=== PATIENT | female | born 1950 | race Caucasian/White ===

== ENCOUNTER 2020-11-17 08:00 | Emergency (ER) | payer OTHER, SELFPAY ==
--- NOTE | ~2020-11-17 | XR_ITS ---
EXAMINATION: XR shoulder RT min 2V, XR humerus RT, XR elbow RT min 3V EXAM DATE: 11/17/2020 08:50 INDICATION: Fall, injury. TECHNIQUE: Right shoulder frontal, oblique, Y projections. Right humerus frontal and oblique projecti ons. Right elbow frontal, oblique, lateral with flexion projections. There are no prior studies for c omparison. FINDINGS: There is acute closed posttraumatic fracture through the shaft of the right humerus with mi ld displacement and mild angulation. There is a fracture line identified extending cephalad along the long access of the bone toward the humeral head. This may also involve the greater tuberosity. No sh oulder dislocation. The right elbow is unremarkable. IMPRESSION: Acute right humeral shaft fracture with mild angulation and displacement. Nondisplaced c omponent of fracture extending into humeral neck and probably greater tuberosity. Reviewed, dictated and finalized at location [facility] [employer] IMPRESSION: Acute right humeral shaft fracture with mild angulation and displac ement. Nondisplaced component of fracture extending into humeral neck and prob ably greater tuberosity. IMPRESSION: Acute right humeral shaft fracture with mild angulation and displac ement. Nondisplaced component of fracture extending into humeral neck and prob ably greater tuberosity.
[2020-11-17 08:08] VITALS: BP 169/56; PULSE 63; RESP 20; TEMP 36.1; O2SAT 99
--- NOTE | 2020-11-17 09:30 | ED.FALL ---
HPI - Fall General Chief Complaint: Fall Stated Complaint: R arm pain/fall Time Seen by Provider: 11/17/20 08:11 History of Present Illness HPI Narrative: Patient is a 70-year-old female who presents to the ER with injury to her right upper extremity. Patient reports she walked outside in order to obtain a bucket of water to feed her animals. While walking to the bucket she tripped and fell onto her arm. She reports it was pointing in a different direction when she looked at it. She has pain in the middle aspect of her humerus. It causes her pain to move at the shoulder and elbow. She has no numbness or tingling. She did not strike her head or lose consciousness. No additional injuries. Related Data Home Medications Medication Instructions Recorded Confirmed amlodipine 11/17/20 hydrochlorothiazide 11/17/20 lisinopril 11/17/20 metformin mg PO 11/17/20 metoprolol succinate PO 11/17/20 simvastatin mg 11/17/20 Allergies Allergy/AdvReac Type Severity Reaction Status Date / Time No Known Allergies Allergy Verified 11/17/20 08:15 Review of Systems Gastrointestinal: Gastrointestinal: Denies nausea and Denies vomiting Musculoskeletal: Comments: Right upper extremity deformity and pain. Neurologic: Denies syncope, Denies focal weakness and Denies numbness PMFSH Past Medical History Medical History (Updated 11/17/20 @ 10:22 by Mauri Madrigal MD) Diabetes Hyperlipidemia Hypertension Surgical History Surgical History (Updated 11/17/20 @ 09:31 by Mauri Madrigal MD) No pertinent past surgical history Social History Social History (Updated 11/17/20 @ 09:31 by Mauri Madrigal MD) Smoking status: Never smoker Exam Narrative: Exam Narrative: GENERAL: Well-appearing, well-nourished, and in no acute distress. HEAD: Normocephalic, atraumatic. CHEST: Clear to auscultation. No respiratory distress. HEART: Regular rate and rhythm. Normal peripheral pulses. EXTREMITIES: Tender palpation mid shaft humerus and at the elbow. Sensation intact in the upper extremity as well as normal pulses in the wrist with normal capillary refill. SKIN: Warm, dry, no rash. NEURO: Alert and oriented x3. PSYCH: Normal mood and affect. Course Course Emergency Course: Patient informed of results. Discussed case with Dr. Brewer. Recommends shoulder immobilization and follow-up. Patient received [place] for home. Vital Signs Vital signs: Vital Signs Temperature 97.0 F L 11/17/20 08:08 Pulse Rate 63 11/17/20 08:08 Respiratory Rate 20 11/17/20 08:08 Blood Pressure 169/56 H 11/17/20 08:08 Pulse Oximetry 99 11/17/20 08:08 Temperature 97.0 F L 11/17/20 08:08 Pulse Rate 63 11/17/20 08:08 Respiratory Rate 20 11/17/20 08:08 Blood Pressure 169/56 H 11/17/20 08:08 Pulse Oximetry 99 11/17/20 08:08 MDM - Fall Imaging Data Radiologist's impression: ITS Impressions Elbow X-Ray 11/17/20 08:55 IMPRESSION: Acute right humeral shaft fracture with mild angulation and displacement. Nondisplaced component of fracture extending into humeral neck and probably greater tuberosity. Humerus X-Ray 11/17/20 08:55 IMPRESSION: Acute right humeral shaft fracture with mild angulation and displacement. Nondisplaced component of fracture extending into humeral neck and probably greater tuberosity. Shoulder X-Ray 11/17/20 08:55 IMPRESSION: Acute right humeral shaft fracture with mild angulation and displacement. Nondisplaced component of fracture extending into humeral neck and probably greater tuberosity. Discharge Plan Discharge Clinical Impression: Fracture, humerus closed, shaft Patient Disposition: Home, Self-Care Condition: Stable Instructions: Arm Fracture in Adults (ED), Shoulder Immobilizer (ED) Additional Instructions: Return to the ER if your arm is cold and blue, you have significant increase in pain, you cannot detect a pulse, or you suf
== END 2020-11-17 10:34 | disposition home or self-care (01) ==
PROVIDERS: Emergency Provider Emergency Medicine; PCP Internal Medicine
DX: S49.91XA Unspecified injury of right shoulder and upper arm, initial encounter (principal); S42.301A Unspecified fracture of shaft of humerus, right arm, initial encounter for closed fracture; E11.9 Type 2 diabetes mellitus without complications; Z79.84 Long term (current) use of oral hypoglycemic drugs; E78.5 Hyperlipidemia, unspecified; I10 Essential (primary) hypertension; W01.0XXA Fall on same level from slipping, tripping and stumbling without subsequent striking against object, initial encounter
CPT/HCPCS: 73030; 73060; 73080; 99284